=== PATIENT | male | born 1975 | race Asian ===

== ENCOUNTER 2017-08-16 04:20 | Emergency (ER) | payer MEDICAID ==
[~2017-08-16] VITALS: Ht 167.6 cm; Wt 90.7 kg
[~2017-08-16 04:20] MED LIST: DULO60CA; GABA100C; GLIM4TAB42; GLYB5TAB8; HYDR-2595; METF500T5; PIOG15TA38; PREG50CA
[2017-08-16 04:50] VITALS: BP 147/93
[2017-08-16] MEDS ORDERED: TETANUS-DIPTH-ACEL PERTUSSIS 0.5ML SYRG IM ONE (05:00)
[2017-08-16] MEDS ORDERED: LIDOCAINE 1% HCL (LOCAL ANESTH.) INJ 20ML MDV IN ONE (05:00)
[2017-08-16] MEDS ORDERED: ACETAMINOPHEN 325 MG TAB PO ONE (05:15)
== END 2017-08-16 05:44 | disposition home or self-care (01) ==
LOC: ER 04:20
DX: S61.412A Laceration without foreign body of left hand, initial encounter (principal); E11.9 Type 2 diabetes mellitus without complications; I10 Essential (primary) hypertension; W26.0XXA Contact with knife, initial encounter; Y93.89 Activity, other specified; Y99.8 Other external cause status; Y92.89 Other specified places as the place of occurrence of the external cause
CPT/HCPCS: 12001; 12041; 82962; 90471; 90715